=== PATIENT | female | born 1965 | race Caucasian/White ===

== ENCOUNTER 2019-05-16 21:45 | Observation (INO) | payer OTHER ==
--- NOTE | 2019-05-16 22:45 | PDOC ---
History of Present Illness - General Stated Complaint: SENT BY THE DOCTOR Time Seen by Provider: 05/16/19 22:13 - History of Present Illness Initial Comments: Nila Nowak is a 53yo woman with a PMH of HTN and acute kidney failure (pt reports resolved now) who presents with left arm numbness and pain. She says that her arm felt numb when she woke this morning. She "shook it out" and the numbness transitioned to pins and needles, then to aching pain. She took 650mg acetaminophen eralier in the day with minimal improvemnt so went to urgent care [facility]. The urgent care center did an EKG that she reports was normal, and she was told to come to the ED for additional evaluation. Ms Nowak denies any chest pain, difficulty breathing, pain with breathing, cough , neck pain, headache, racing heart, lightheadedness, sweating, nausea/vomiting , recent travel, recent immobilization, recent surgery, h/o blood clots, history of cancer, continued hand numbness, difficulty with arm movements, or other new or different symptoms. Past History - Past Medical History Allergies/Adverse Reactions: Allergies Allergy/AdvReac Type Severity Reaction Status Date / Time No Known Allergies Allergy Verified 05/16/19 22:01 COPD: No HTN: Yes Kidney Stones: Yes - Psycho Social/Smoking Cessation Hx Smoking History: Former smoker Have you smoked in the past 12 months: No Information on smoking cessation initiated: No Hx Alcohol Use: No Drug/Substance Use Hx: No Review of Systems - Review of Systems Comments:: General: No fevers, no chills, no weight or appetite change, no malaise HEENT: No changes in vision, no changes in hearing, no congestion, no sore throat CV: No chest pain, + occasional palpitations, no LE edema Pulm: No SOB, no cough, no wheezing GI: No nausea or vomiting, no change in bowel habits, no melena : No frequency, no urgency, no dysuria Musc: No back pain, no joint swelling. See HPI Skin: No rash, no lesions, no erythema Endo: No excessive thirst, no heat/cold intolerance Heme: No unusual bruising or bleeding, no swollen glands Neuro: No syncope, +LUE numbness (resolved), no focal weakness Vasc: No claudication Psych: No recent change in mood, no SI or HI *Physical Exam - Vital Signs Last Vital Signs Temp Pulse Resp BP Pulse Ox 97.9 F 87 18 138/72 100 05/16/19 21:50 05/16/19 21:50 05/16/19 21:50 05/16/19 21:50 05/16/19 21:50 - Physical Exam General: Comfortable, no acute distress HEENT: Atraumatic, PERRL, EOMI, MMM, voice normal, normal neck ROM, no neck TTP Cards: RRR, no murmur appreciated Pulm: Comfortable on room air, clear to auscultation bilaterally Abd: Soft, nontender, nondistended Ext: Atraumatic. No LE edema. LUE with mild TTP over superior shoulder. No TTP over upper arm or forearm. LUE ROM intact; pain w/ internal rotation and with flexion/abduction of arm raised over head. Hand movements intact. LUE strength 5 /5 at shoulder flexion, 5/5 extension, 5/5 ab/adduction, 5/5 internal and external rotation, 5/5 flexion and extension at elbow and wrist. Vasc: Extremities WWP. Palpable radial pulses bilaterally Skin: Normal color, no rashes or lesions Neuro: A&Ox3, CN grossly intact, normal speech, motor/sensory grossly intact and symmetric Psych: Mood appropriate to situation ED Treatment Course - LABORATORY CBC & Chemistry Diagram: 05/16/19 23:00 05/16/19 23:00 Medical Decision Making - Medical Decision Making 05/16/19 22:45 Nila Nowak is a 53yo woman with a PMH of HTN and acute kidney failure (pt reports resolved now) who presents with left arm numbness when she woke up, now with LUE pain that worsens with arm movement. She was seen in urgent care and sent to the ED for cardiac workup. - Reproducible LUE pain with palpation and with internal rotation and when raising her arm over her head. Most likely musculoskeletal. Possible electrolyte abnormality given recent potassium supplementation - No chest pain, sob, or associated symptoms concerning for cardiac etiology. No pulmonary complaints. No neck or neurological symptoms - Toradol, lidocaine, robaxin for symptoms - EKG from urgent care w/ NSR, HR 73, normal axis, normal intervals, no t-wave or ST changes - CBC, CMP, trop for evaluation. 05/16/19 23:23 - Discussed with team. CT c-spine ordered for additional evaluation 05/16/19 23:56 - Sign out given to Dr Garcia for the remainder of her ED care Discussed with Dr Goran Lujan PGY2 Discharge - Discharge Information Problems reviewed: Yes Clinical Impression/Diagnosis: Left arm pain Condition: Stable - Follow up/Referral - Patient Discharge Instructions Additional Instructions: Discharge Instructions: You were seen in the emergency department for left arm pain. This is most likely to a muscle strain. Home Care and Follow Up: - You may use over the counter medications as needed for pain at home. 650- 1000mg acetaminophen (Tylenol) or 600mg ibuprofen (Motrin or Advil) can be used every 6-8 hours. If needed for continued pain, these medications may be alternated every 3-4 hours. For example, if you take ibuprofen at 9am, you may take acetaminophen at noon, ibuprofen at 3pm, etc. - It is strongly recommended that you take ibuprofen with food to help prevent stomach irritation. - You may buy a numbing patch that contains lidocaine (the patch is 4% lidocaine ) that can be placed over the areas of greatest pain. The lidocaine patch may be placed for 12 hours then removed for 12 hours. - Try using an ice pack for 20 minutes every hour or a heating pad for additional pain control. These should NOT be used over the lidocaine patch, but you may place them over the areas of pain while the patch is off. - Do not stop moving around. As much as you can tolerate, continue to do light exercise and stretching exercises. Increase your activity level as much as you can tolerate daily. - If your pain does not improve over the next week, you have been referred to [facility] ([facility]) for follow up. - Seek immediate medical care if you have significant worsening of your symptoms , you are unable to move your arm, you have cool fingers, your fingers become numb, you have chest pain, you have difficulty breathing, or you have any other medical emergency. - Post Discharge Activity
--- NOTE | 2019-05-16 22:47 | PDOC ---
Attending Attestation - Resident Resident Name: Monika Lujan - ED Attending Attestation I have performed the following: I have examined & evaluated the patient, The case was reviewed & discussed with the resident, I agree w/resident's findings & plan - HPI HPI: 05/16/19 23:24 Pt woke up with left shoulder and arm pain. She is not sure if she slept on the left arm. She usually sleeps on 1 pillow and nothing different last night. Pt went to Urgent Care and she had a normal EKG only some PVCs and she was sent to the ER for further eval. Pt has no chest pain and no SOB. She has only numbness on the left shoulder and down the arm. - Physicial Exam PE: 05/16/19 23:28 Pt is afebrile Lungs clear Heart [id number] Abd soft NT ND no flank pain no rashes 05/16/19 23:49 Pt is morbidly obese and we discussed the merits of a diet high in fruits and veggies. - Medical Decision Making 05/16/19 23:29 CBC normal Chem pending Cspine CT scan pending 05/16/19 23:57 Chem normal cardiac enzyme pending 05/17/19 00:21 card enz normal 05/17/19 00:32 Patient Name: BERNIE LEIGH THIS IS A PRELIMINARY REPORT FROM [facility] DATE OF SERVICE: 2019-05-16 23:35:20 IMAGES: 222 EXAM: CERVICAL SPINE CT W/O CONTR HISTORY rule out pinched nerve COMPARISON: None. FINDINGS There is straightening of the cervical lordosis which could be due to muscle spasm and/or degenerative changes. The cervical vertebrae are normally aligned. No fracture or destructive bone lesion. Degenerative bony changes: C6-7, there is mild posterior osteophyte. No other bony degenerative changes are identified. Because of image degradation from the patient's large body habitus and because CT is relatively insensitive for evaluation of degenerative disc disease, canal, and cord disease , I cannot accurately assess for disc herniations on this scan. There is a vague density at C6?7 which may represent a large central/left paramedian disc herniation. However it is not well seen. It could be impressing on the canal and cord. However, for evaluation of degenerative disc or ligamentous disease, spinal canal stenosis, canal or cord disease, MRI is more sensitive. Heart Score/ECG Review - ECG Intrepretation Rhythm: Regular Rhythm - Erie Erie: Normal - P and OR Prominent R with upright T in V1 (true posterior MS): No - QRS Poor R Wave Progression: No Q Wave Present: No - ST and T Early Repolarization: No Non Specific ST-T Wave changes: No - ECG Impressions Normal ECG: Yes Non-specific ST Elevation: No Ischemic Changes: No Bradycardia: No Torsades diana Pointes: No WPW: No
[2019-05-16 23:15] LABS: BASO % 0.4 % (0-2.0); HEMATOCRIT 35.8 % (32.4-45.2); HEMOGLOBIN 11.4 GM/dL (10.7-15.3); LYMPH % 33.3 % (8-40); MCH 26.5 pg (25.7-33.7); MCHC 31.8 g/dl (32.0-36.0); MEAN CELL VOLUME 83.4 fl (80-96); MEAN PLT VOLUME 8.8 fl (7.5-11.1); MONO % 7.4 % (3.8-10.2); NEUT % 56.9 % (42.8-82.8); PLATELET COUNT 324 K/MM3 (134-434); RDW 14.9 % (11.6-15.6); WHITE BLOOD COUNT 11.9 K/mm3 (4.0-10.0)
[2019-05-16] MEDS ORDERED: KETOROLAC TROMETHAMINE 60 MG/2 ML VIAL IM ONE (23:19)
[2019-05-16] MEDS ORDERED: LIDOCAINE 5% TOPICAL PATCH TP ONE (23:19)
[2019-05-16] MEDS ORDERED: METHOCARBAMOL 500 MG TABLET PO ONE (23:19)
[2019-05-16 23:52] LABS: ALBUMIN 3.6 g/dl (3.4-5.0); BILIRUBIN,TOTAL 0.3 mg/dL (0.2-1); BLOOD UREA NITROGEN 24.8 mg/dL (7-18); CALCIUM 9.7 mg/dL (8.5-10.1); POTASSIUM 4.9 mmol/L (3.5-5.1); TOT PROT 6.9 g/dl (6.4-8.2)
[2019-05-16] MEDS ORDERED: SODIUM CHLORIDE 0.9% 500 ML INFUS.BAG IV ONE (23:57)
--- NOTE | 2019-05-17 00:08 | PDOC ---
*Physical Exam - Vital Signs Last Vital Signs Temp Pulse Resp BP Pulse Ox 97.9 F 87 18 138/72 100 05/16/19 21:50 05/16/19 21:50 05/16/19 21:50 05/16/19 21:50 05/16/19 21:50 ED Treatment Course - LABORATORY CBC & Chemistry Diagram: 05/16/19 23:00 05/16/19 23:00 - ADDITIONAL ORDERS Additional order review: Laboratory Results 05/16/19 05/16/19 23:00 23:00 Sodium 140 Potassium 4.9 Chloride 109 H Carbon Dioxide 27 Anion Gap 5 L BUN 24.8 H Creatinine 1.0 Est GFR (CKD-EPI)AfAm 75.54 Est GFR (CKD-EPI)NonAf 65.18 Random Glucose 109 H Calcium 9.7 Total Bilirubin 0.3 AST 12 L ALT 22 Alkaline Phosphatase 87 Creatine Kinase 42 Troponin I < 0.02 Total Protein 6.9 Albumin 3.6 05/16/19 23:00 RBC 4.30 MCV 83.4 MCHC 31.8 L RDW 14.9 MPV 8.8 Neutrophils % 56.9 Lymphocytes % 33.3 Monocytes % 7.4 Eosinophils % 2.0 Basophils % 0.4 Medical Decision Making - Medical Decision Making Patient signed out to me from Dr. Lujan pending CMP, CT read and likely DC from ED if all within normal limits CMP: elevated BUN - Hydrating patient w one liter Cervical CT: Radiologist called attending Dr. Zimmer and said he cannot r/o spinal cord impingement and recommends patient get MRI Dispo: Admit to hospital for MRI to r/o cord compression Discharge - Discharge Information Problems reviewed: Yes Clinical Impression/Diagnosis: Left arm pain, Left arm numbness Condition: Stable - Admission Yes - Follow up/Referral - Patient Discharge Instructions Additional Instructions: Discharge Instructions: You were seen in the emergency department for left arm pain. This is most likely to a muscle strain. Home Care and Follow Up: - You may use over the counter medications as needed for pain at home. 650- 1000mg acetaminophen (Tylenol) or 600mg ibuprofen (Motrin or Advil) can be used every 6-8 hours. If needed for continued pain, these medications may be alternated every 3-4 hours. For example, if you take ibuprofen at 9am, you may take acetaminophen at noon, ibuprofen at 3pm, etc. - It is strongly recommended that you take ibuprofen with food to help prevent stomach irritation. - You may buy a numbing patch that contains lidocaine (the patch is 4% lidocaine ) that can be placed over the areas of greatest pain. The lidocaine patch may be placed for 12 hours then removed for 12 hours. - Try using an ice pack for 20 minutes every hour or a heating pad for additional pain control. These should NOT be used over the lidocaine patch, but you may place them over the areas of pain while the patch is off. - Do not stop moving around. As much as you can tolerate, continue to do light exercise and stretching exercises. Increase your activity level as much as you can tolerate daily. - If your pain does not improve over the next week, you have been referred to [facility] ([facility]) for follow up. - Seek immediate medical care if you have significant worsening of your symptoms , you are unable to move your arm, you have cool fingers, your fingers become numb, you have chest pain, you have difficulty breathing, or you have any other medical emergency. - Post Discharge Activity
[2019-05-17] MEDS ORDERED: KETOROLAC TROMETHAMINE 60 MG/2 ML VIAL ONE (00:13)
[2019-05-17] MEDS ORDERED: METHOCARBAMOL 500 MG TABLET ONE (00:13)
[2019-05-17] MEDS ORDERED: LIDOCAINE 5% TOPICAL PATCH ONE (00:13)
[2019-05-17] MEDS ORDERED: DEXAMETHASONE SOD PHOSPHATE 10 MG/1 ML VIAL IVPUSH ONE (01:28)
[2019-05-17] MEDS ORDERED: DEXAMETHASONE SOD PHOSPHATE 10 MG/1 ML VIAL ONE (02:02)
--- NOTE | 2019-05-17 04:08 | HP ---
CHIEF COMPLAINT: left arm pain, numbness PCP: HISTORY OF PRESENT ILLNESS: 53 y/o/f with PMHx of HTN presented to the ED due to left arm pain and numbness x1 day. Patient states the pain and numbness started when she woke up yesterday morning. She denies any trauma or injury to her left arm. Her pain radiated from her neck down her left arm. States that she had numbness and pins and needles sensation in her left arm that only resolved after she arrived in the ED and was given medication. She denies any chest pain. She does endorse intermittent palpitations that have been ongoing since she was started on a potassium supplement 3 weeks ago by her Manufacturing Assembler, Dr. Ellis. Denies SOB, abd pain, N/V/D, headache, changes in vision, photophobia, dysuria, dizziness. Patient states she follows with a neon pumper due to a history of renal failure secondary to a kidney abscess two years ago. She states she had to have a drain placed for treatment of the abscess two years ago. She states she was never told why the abscess developed and has not had any recurrences since. ER course was notable for: (1) CT neck completed - "There is a vague density at C6?7 which may represent a large central/left paramedian disc herniation. However it is not well seen. It could be impressing on the canal and cord. 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 Allergies No Known Allergies Allergy (Verified 05/16/19 22:01) HOME MEDICATIONS: Home Medications Medication Instructions Recorded Lisinopril [Prinivil -] 40 mg PO DAILY 05/17/19 Metoprolol Tartrate 25 mg PO DAILY 05/17/19 Potassium Citrate [Potassium 1 tab PO DAILY 05/17/19 Citrate ER] REVIEW OF SYSTEMS As per HPI PHYSICAL EXAMINATION Vital Signs - 24 hr 05/16/19 05/17/19 21:50 03:24 Temperature 97.9 F 97.7 F Pulse Rate 87 Pulse Rate [ 71 Apical] Respiratory 18 18 Rate Blood Pressure 138/72 Blood Pressure 117/65 [Right Arm] O2 Sat by Pulse 100 98 Oximetry (%) GENERAL: Awake, alert, and fully oriented, in no acute distress. HEAD: Normal with no signs of trauma. EYES: EOMI, no scleral icterus, no ptosis EARS, NOSE, THROAT: MMM NECK: Normal range of motion, supple without lymphadenopathy, JVD, or masses. LUNGS: Breath sounds equal, clear to auscultation bilaterally. No wheezes, and no crackles. No accessory muscle use. HEART: RRR, normal S1, S2, no murmur noted ABDOMEN: Soft, nontender, not distended MUSCULOSKELETAL: no spinal midline tenderness to palpation EXTREMITIES: 2+ pulses, warm, well-perfused. No calf tenderness. No peripheral edema. NEUROLOGICAL: Cranial nerves II-XII intact. Normal speech. 5/5 strength upper extremities. Normal sensation throughout. 2+ biceps and triceps reflexes bilaterally PSYCHIATRIC: Cooperative. Good eye contact. Appropriate mood and affect. SKIN: Warm, dry, normal turgor, no rashes or lesions noted, normal capillary refill. Laboratory Results - last 24 hr 05/16/19 05/16/19 05/16/19 23:00 23:00 23:00 WBC 11.9 H RBC 4.30 Hgb 11.4 Hct 35.8 MCV 83.4 MCH 26.5 MCHC 31.8 L RDW 14.9 Plt Count 324 MPV 8.8 Absolute Neuts (auto) 6.8 Neutrophils % 56.9 Lymphocytes % 33.3 Monocytes % 7.4 Eosinophils % 2.0 Basophils % 0.4 Nucleated RBC % 0 Sodium 140 Potassium 4.9 Chloride 109 H Carbon Dioxide 27 Anion Gap 5 L BUN 24.8 H Creatinine 1.0 Est GFR (CKD-EPI)AfAm 75.54 Est GFR (CKD-EPI)NonAf 65.18 Random Glucose 109 H Calcium 9.7 Total Bilirubin 0.3 AST 12 L ALT 22 Alkaline Phosphatase 87 Creatine Kinase 42 Troponin I < 0.02 Total Protein 6.9 Albumin 3.6 ASSESSMENT/PLAN: 53 y/o/f with PMHx of HTN presented to the ED due to left arm pain and numbness x1 day. #Left arm Pain - Concern for cord compression vs. rotator cuff injury vs. nerve impingement - CT showing vague density at C6?7 which may represent a large central/left paramedian disc herniation whch is not seen well but could be pressing on the canal and cord. - MRI cervical spine without contrast ordered for further evaluation of spinal cord compression, however low concern for cord compression - Pain control with Motrin PRN - Can order Lidocaine patch as needed - Left shoulder xray ordered to evaluate for arthritic changes - would likely benefit from outpatient physical therapy #HTN - Continue home Lisinopril and Metoprolol medication #Prophylaxis - Heparin #FEN - IVF not indicated - Sodium controlled diet - Monitor and replete lytes as needed #Disposition - Admitted to med surg obs Visit type - Emergency Visit Emergency Visit: Yes ED Registration Date: 05/17/19 Care time: The patient presented to the Emergency Department on the above date and was hospitalized for further evaluation of their emergent condition. - New Patient This patient is new to me today: Yes Date on this admission: 05/17/19 - Critical Care Critical Care patient: No ATTENDING PHYSICIAN STATEMENT I saw and evaluated the patient. I reviewed the resident's note and discussed the case with the resident. I agree with the resident's findings and plan as documented. SUBJECTIVE: OBJECTIVE: ASSESSMENT AND PLAN:
[2019-05-17] MEDS ORDERED: ACETAMINOPHEN 325 MG TABLET (FP) PO PRN (04:37)
--- NOTE | 2019-05-17 04:52 | PN ---
Teaching Attending Note Name of Resident: Faustino Hinds ATTENDING PHYSICIAN STATEMENT I saw and evaluated the patient. I reviewed the resident's note and discussed the case with the resident. I agree with the resident's findings and plan as documented. SUBJECTIVE: 53-year-old woman with 1 day of left shoulder pain, weakness with left upper extremity abduction, some tenderness to anterior deltoid. Denies any back pain numbness, or tingling. Denied any heavy lifting, trauma to left upper extremity. 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 OBJECTIVE: Last Vital Signs Temp Pulse Resp BP Pulse Ox 97.8 F 76 18 127/78 100 05/17/19 04:00 05/17/19 04:00 05/17/19 04:00 05/17/19 04:00 05/17/19 04:00 GENERAL: Well developed, well nourished. Awake and alert. No acute distress. HEENT: Normocephalic, atraumatic. PERRLA, EOMI. No conjunctival pallor. Sclera are non- icteric. Moist mucous membranes. Oropharynx is clear. NECK: Supple. Full ROM. No JVD. Carotid pulses 2+ and symmetric, without bruits. No thyromegaly. No lymphadenopathy. CARDIOVASCULAR: Regular rate and rhythm. No murmurs, rubs, or gallops. Distal pulses are 2+ and symmetric. PULMONARY: No evidence of respiratory distress. Lungs clear to auscultation bilaterally. No wheezing, rales or rhonchi. ABDOMINAL: Soft. Non-tender. Non-distended. No rebound or guarding. No organomegaly. Normoactive bowel sounds. MUSCULOSKELETAL Weakness in abduction of left arm, no sensory deficits noted, mild tenderness in anterior deltoid EXTREMITIES: No cyanosis. No clubbing. No edema. No calf tenderness. SKIN: Warm and dry. Normal capillary refill. No rashes. No jaundice. NEUROLOGICAL: Alert, awake, appropriate. Cranial nerves 2-12 intact. No deficits to light touch and temperature in face, upper extremities and lower extremities. No motor deficits in the in face, upper extremities and lower extremities. Normoreflexic in the upper and lower extremities. Normal speech. Toes are down- going bilaterally. Gait is normal without ataxia. PSYCHIATRIC: Cooperative. Good eye contact. Appropriate mood and affect. Abnormal Lab Results 05/16/19 05/16/19 23:00 23:00 WBC 11.9 H MCHC 31.8 L Chloride 109 H Anion Gap 5 L BUN 24.8 H Random Glucose 109 H AST 12 L Imaging studies reviewed ASSESSMENT AND PLAN: 53-year-old woman with suspected left shoulder tendinitis versus muscle strain. Cervical CT performed in ER and was not able to ruled out C6-C7 disc herniation. Clinically, low suspicion for cervical disc herniation as patient denies any back or neck pain and pain is localized to shoulder. Patient is being admitted for MRI of neck to rule out disc herniation. Admit to [facility] Cervical MRI Left shoulder x-ray Ibuprofen PRN Trial of Flexeril Would likely benefit from outpatient physical therapy Heparin subcutaneously for DVT prophylaxis
[2019-05-17] MEDS ORDERED: IBUPROFEN 400 MG TABLET (FP) PO PRN (04:57)
[2019-05-17 05:10] VITALS: BMI 44.5
[2019-05-17] MEDS: HEPARIN NA (PORCINE) 5,000 UNITS/ML 1ML VIAL SQ SCH ×3 (06:25→15:39)
[2019-05-17 09:46] LABS: HEMOGLOBIN 12.5 GM/dL (10.7-15.3); MCH 27.1 pg (25.7-33.7); MCHC 32.8 g/dl (32.0-36.0); MEAN CELL VOLUME 82.6 fl (80-96); MEAN PLT VOLUME 9.6 fl (7.5-11.1); PLATELET COUNT 355 K/MM3 (134-434); RDW 14.9 % (11.6-15.6)
[2019-05-17] MEDS ORDERED: LISINOPRIL 20 MG TABLET (FP) PO SCH (10:00)
[2019-05-17] MEDS ORDERED: METOPROLOL TARTRATE 25 MG TABLET (FP) PO SCH (10:00)
[2019-05-17 10:15] LABS: BILIRUBIN,TOTAL 0.5 mg/dL (0.2-1); BLOOD UREA NITROGEN 28.4 mg/dL (7-18); CALCIUM 9.8 mg/dL (8.5-10.1); MAGNESIUM 2.5 mg/dL (1.8-2.4); POTASSIUM 4.7 mmol/L (3.5-5.1); TOT PROT 7.6 g/dl (6.4-8.2)
--- NOTE | 2019-05-17 10:44 | EKG ---
Test Reason : Blood Pressure : / mmHG Vent. Rate : 063 BPM Atrial Rate : 063 BPM P-R Int : 164 ms QRS Dur : 078 ms QT Int : 394 ms P-R-T Axes : 044 025 024 degrees QTc Int : 403 ms NORMAL SINUS RHYTHM WITH SINUS ARRHYTHMIA NORMAL ECG NO PREVIOUS ECGS AVAILABLE Confirmed by MONE OCONNOR MD ([id number]) on 05/17/2019 10:43:52 AM Referred By: Confirmed By:MONE OCONNOR MD
[2019-05-17 18:40] VITALS: BP 134/78; PULSE 67; TEMP 97.8
--- NOTE | 2019-05-17 18:47 | PN ---
Progress Note, Physician Chief Complaint: left arm weakness History of Present Illness: patient feeling well, left arm numbness, weakness and pain all resolved - Current Medication List Current Medications: Active Medications Heparin Sodium (Porcine) (Heparin -) 5,000 unit SQ TID [facility] Last Admin: 05/17/19 15:39 Dose: Not Given Ibuprofen (Motrin -) 400 mg PO Q6H PRN PRN Reason: PAIN LEVEL 1-5 Lisinopril (Prinivil) 40 mg PO DAILY [facility] Last Admin: 05/17/19 09:18 Dose: 40 mg Metoprolol Tartrate (Lopressor -) 25 mg PO DAILY [facility] Last Admin: 05/17/19 09:19 Dose: 25 mg - Objective Vital Signs: Vital Signs Temperature 97.8 F 05/17/19 18:00 Pulse Rate 67 05/17/19 18:00 Respiratory Rate 18 05/17/19 18:00 Blood Pressure 134/78 05/17/19 18:00 O2 Sat by Pulse Oximetry (%) 100 05/17/19 10:00 Constitutional: Yes: Well Nourished, No Distress, Calm Cardiovascular: Yes: WNL, Regular Rate and Rhythm Respiratory: Yes: WNL, Regular, CTA Bilaterally Gastrointestinal: Yes: WNL, Normal Bowel Sounds, Soft Musculoskeletal: Yes: WNL Extremities: Yes: WNL Edema: No Neurological: Yes: WNL, Alert, Oriented Labs: CBC, BMP 05/17/19 08:35 05/17/19 08:35 Problem List - Problems (1) Left arm numbness Code(s): R20.0 - ANESTHESIA OF SKIN (2) Left arm pain Code(s): M79.602 - PAIN IN LEFT ARM (3) HTN (hypertension) Code(s): I10 - ESSENTIAL (PRIMARY) HYPERTENSION Assessment/Plan ASSESSMENT AND PLAN: 53-year-old woman with suspected left shoulder tendinitis versus muscle strain. -cervical MRI done and pending read -pain resolved -dc planning in AM -BP controlled on meds
--- NOTE | 2019-05-18 03:45 | PN ---
Progress Note (short form) - Note Progress Note: Called by RN to assess pt. who is uncomfortable in the hospital and would like to leave AMA. Pt found in hallway eager to leave. She was brought back to her room and assessed. Pt is no longer in pain and would like to return home to sleep in her own bed. She was advised that her condition could worsen if she leave and that she is taking responsibility for leaving. 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 Pt was dressed with no IV/ SL intact. She declined physical examination. Pt was advised to return to the ED is symptoms worsen or she experiences unusual headache, vision change, shortness of breath, chest pain, numbness, tingling, loss of alertness/awareness , loss of function, unusual bleeding or any alarming symptoms. Her daughter drove to pick her up and bring the pt home.
== END 2019-05-17 22:00 | disposition left against medical advice (07) ==
LOC: JER 21:45 → JERBED 05-17 01:24 → J5S 05-17 04:00
PROVIDERS: ADMIT Internal Medicine; ATTEND Internal Medicine
PROC: 3E033GC Introduction of Other Therapeutic Substance into Peripheral Vein, Percutaneous Approach (ICD-10-PCS; principal; 2019-05-17)
PROC: 3E0233Z Introduction of Anti-inflammatory into Muscle, Percutaneous Approach (ICD-10-PCS; 2019-05-17)
DX: R20.0 Anesthesia of skin (principal); M79.602 Pain in left arm; I10 Essential (primary) hypertension; Z87.442 Personal history of urinary calculi; Z87.891 Personal history of nicotine dependence
CPT/HCPCS: 36415; 72125-TC; 72141-TC; 73030-TC-LT-FY; 80053; 82550; 83735; 84484; 85025; 85027; 93005; 93010; 96372; 96374; 99284-25; G0378; J1100; J1644

== ENCOUNTER 2021-12-20 16:58 | Emergency (ER) | payer OTHER ==
[2021-12-20 17:12] VITALS: BP 136/92; PULSE 68; RESP 18; TEMP 97.4; BMI 44.2
== END 2021-12-20 21:15 | disposition home or self-care (01) ==
LOC: JERFT 16:58 → JER 16:58 → JERFT 21:15
DX: G56.01 Carpal tunnel syndrome, right upper limb (principal); M25.531 Pain in right wrist
CPT/HCPCS: 73110-TC-RT-FY; 73130-TC-RT-FY; 99284-25

== ENCOUNTER 2022-03-17 16:13 | Emergency (ER) | payer OTHER ==
[2022-03-17 16:50] VITALS: BP 162/73; PULSE 91; RESP 20; TEMP 99.5; BMI 44.2
== END 2022-03-17 21:42 | disposition home or self-care (01) ==
LOC: JER 16:13
DX: J09.X2 Influenza due to identified novel influenza A virus with other respiratory manifestations (principal)
CPT/HCPCS: 0241U-QW; 71046-TC-FY; 99284-25

== ENCOUNTER 2022-07-29 09:35 | Emergency (ER) | payer OTHER ==
[2022-07-29 09:58] VITALS: RESP 18; BMI 44.6
[2022-07-29] MEDS ORDERED: KETOROLAC TROMETHAMINE 30 MG/1 ML VIAL IVPUSH ONE (10:12)
[2022-07-29] MEDS ORDERED: SODIUM CHLORIDE 1,000 ML IV STA (10:12)
[2022-07-29 10:16] VITALS: TEMP 98.9
[2022-07-29] MEDS ORDERED: KETOROLAC TROMETHAMINE 15 MG/ML VIAL ONE ×2 (10:28→12:15)
[2022-07-29 10:41] LABS: EPITHELIAL CELLS FEW /hpf
[2022-07-29 11:00] LABS: INR 1.19 (0.83-1.09); PROTHROMBIN TIME (PATIENT) 13.7 SEC (9.7-13.0)
[2022-07-29 11:07] LABS: ALBUMIN 3.7 g/dl (3.4-5.0); BILIRUBIN,TOTAL 0.8 mg/dl (0.2-1); CALCIUM 9.3 mg/dl (8.5-10); CREATININE 0.7 mg/dl (0.55-1.3); TOT PROT 6.9 g/dl (6.4-8.2)
[2022-07-29] MEDS ORDERED: KETOROLAC TROMETHAMINE 15 MG/ML VIAL IVPUSH ONE (12:05)
[2022-07-29 12:19] VITALS: BP 144/88; PULSE 82
[2022-07-29 12:43] LABS: BASO % 1.1 % (0-2.0); LYMPH % 28.1 % (8-40); MCH 28.2 pg (25.7-33.7); MCHC 34.2 g/dl (32.0-36.0); MEAN CELL VOLUME 82.2 fl (80-96); MEAN PLT VOLUME 9.4 fl (7.5-11.1); MONO % 9.6 % (3.8-10.2); NEUT % 59.2 % (42.8-82.8); PLATELET COUNT 306 10^3/uL (134-434); RBC 4.25 M/mm3 (3.60-5.2); RDW 14.8 % (11.6-15.6); WHITE BLOOD COUNT 9.6 K/mm3 (4.0-10.0)
== END 2022-07-29 13:00 | disposition home or self-care (01) ==
LOC: FER 09:35
PROC: 3E0333Z Introduction of Anti-inflammatory into Peripheral Vein, Percutaneous Approach (ICD-10-PCS; principal; 2022-07-29)
PROC: 3E0333Z Introduction of Anti-inflammatory into Peripheral Vein, Percutaneous Approach (ICD-10-PCS; 2022-07-29)
PROC: 3E0337Z Introduction of Electrolytic and Water Balance Substance into Peripheral Vein, Percutaneous Approach (ICD-10-PCS; 2022-07-29)
DX: N20.0 Calculus of kidney (principal); N28.1 Cyst of kidney, acquired; Z20.822 Contact with and (suspected) exposure to COVID-19
CPT/HCPCS: 36415; 74176-TC; 80053; 81003; 81015; 83605; 85025; 85610; 86850; 86900; 86901; 87086; 87186; 99284-25; C9803-CS; U0003; U0005

== ENCOUNTER 2023-05-28 21:48 | Emergency (ER) | payer OTHER ==
[2023-05-28 21:57] VITALS: RESP 20; BMI 45.1
[2023-05-29 02:10] VITALS: BP 135/77; PULSE 82; TEMP 98.4
[2023-05-29] MEDS ORDERED: ACETAMINOPHEN 325 MG TABLET (FP) ONE (02:40)
[2023-05-29] MEDS: ACETAMINOPHEN 500 MG TABLET (FP) PO ONE (02:51)
== END 2023-05-29 03:50 | disposition home or self-care (01) ==
LOC: JER 21:48
DX: I10 Essential (primary) hypertension (principal); R51.9 Headache, unspecified; R53.1 Weakness; H53.8 Other visual disturbances
CPT/HCPCS: 93005; 93010; 99283-25

== ENCOUNTER 2023-09-30 08:42 | Emergency (ER) | payer OTHER ==
[2023-09-30 08:48] VITALS: BMI 44.2
[2023-09-30] MEDS ORDERED: ACETAMINOPHEN INJECTION 100 ML IVPB ONE (09:21)
[2023-09-30] MEDS: LACTATED RINGERS SOLUTION 1000 ML INFUS.BAG IV ONE (09:42)
[2023-09-30] MEDS: ACETAMINOPHEN 1000 MG/100 ML BAG IVPB ONE (09:42)
[2023-09-30 09:44] LABS: EOS % 4.4 % (0-4.5); HEMOGLOBIN 12.4 GM/dL (10.7-15.3); LYMPH % 28.5 % (8-40); MCH 28.3 pg (25.7-33.7); MCHC 33.7 g/dl (32.0-36.0); MEAN CELL VOLUME 84.2 fl (80-96); MEAN PLT VOLUME 7.9 fl (7.5-11.1); MONO % 10.4 % (3.8-10.2); NEUT % 55.7 % (42.8-82.8); PLATELET COUNT 348 10^3/uL (134-434); RBC 4.39 M/mm3 (3.60-5.2); RDW 15.2 % (11.6-15.6); WHITE BLOOD COUNT 9.1 K/mm3 (4.0-10.0)
[2023-09-30 10:02] LABS: ACTIVATED PTT 32.6 SECONDS (25.2-36.5); INR 0.98 (0.83-1.09); PROTHROMBIN TIME (PATIENT) 11.1 SEC (9.7-13.0)
[2023-09-30 10:10] LABS: CALCIUM 9.8 mg/dL (8.5-10.1)
[2023-09-30 10:11] LABS: ALBUMIN 3.8 g/dl (3.4-5.0); BLOOD UREA NITROGEN 19.2 mg/dL (7-18); MAGNESIUM 2.3 mg/dL (1.8-2.4)
[2023-09-30 10:14] LABS: CREATININE 0.8 mg/dL (0.55-1.3)
[2023-09-30 10:16] LABS: BILIRUBIN,TOTAL 0.6 mg/dL (0.2-1)
[2023-09-30] MEDS: KETOROLAC TROMETHAMINE 15 MG/ML VIAL IVPUSH ONE (10:29)
[2023-09-30] MEDS ORDERED: KETOROLAC TROMETHAMINE 15 MG/ML VIAL ONE (10:30)
[2023-09-30 11:14] LABS: EPI CELLS 2 /uL (0-25.1); HYALINE CASTS 1 /uL (0-3.1); PH,URINE 5.5 (5.0-8.0); URINE APPEARANCE CLEAR; URINE BACTERIA 743 /uL (0-1359); URINE BILIRUBIN NEGATIVE (NEGATIVE); URINE COLOR YELLOW; URINE GLUCOSE (UA) NEGATIVE (NEGATIVE); URINE KETONE NEGATIVE (NEGATIVE); URINE LEUK ESTERASE 1+ (NEGATIVE); URINE NITRITE NEGATIVE (NEGATIVE); URINE PROTEIN NEGATIVE (NEGATIVE); URINE RBC 17 /uL (0-23.9); URINE UROBILINOGEN 0.2 mg/dL (0.2-1.0); URINE WBC 174 /uL (0-25.8)
[2023-09-30] MEDS ORDERED: CEPHALEXIN MONOHYDRATE 500 MG CAPSULE (UD) PO ONE (12:17)
[2023-09-30] MEDS ORDERED: CEPHALEXIN MONOHYDRATE 500 MG CAPSULE (UD) ONE (12:23)
[2023-09-30 12:35] VITALS: BP 122/78; PULSE 76; RESP 19; TEMP 98.3
== END 2023-09-30 12:36 | disposition home or self-care (01) ==
LOC: JER 08:42
PROC: 3E033NZ Introduction of Analgesics, Hypnotics, Sedatives into Peripheral Vein, Percutaneous Approach (ICD-10-PCS; principal; 2023-09-30)
PROC: 3E0333Z Introduction of Anti-inflammatory into Peripheral Vein, Percutaneous Approach (ICD-10-PCS; 2023-09-30)
DX: N39.0 Urinary tract infection, site not specified (principal); M54.9 Dorsalgia, unspecified; R10.9 Unspecified abdominal pain
CPT/HCPCS: 36415; 74176-TC; 80053; 81003; 83735; 85025; 85610; 85730; 87086; 87186; 99284-25; J0131